=== PATIENT | male | born 1985 | race Caucasian/White ===

== ENCOUNTER 2016-10-18 14:46 | Emergency (ER) | payer OTHER ==
[2016-10-18 15:45] VITALS: BP 125/68
--- NOTE | 2016-10-18 15:56 | UC ---
Shoulder Pain HPI - HPI Summary HPI Summary: waxing and waning right shoulder pain after pushing up on some lumber on his work truck . the lumber has stuck and he stress his right shoulder - History of Current Complaint Chief Complaint: UCUpperExtremity Stated Complaint: WC RIGHT SHOULDER INJURY Time Seen by Provider: 10/18/16 15:48 Hx Obtained From: Patient Onset/Duration: Sudden Onset, Lasting Weeks, Still Present Timing: Intermittent Episode Lasting Severity Initially: Moderate Severity Currently: Mild Location Of Pain: Is Discrete @ - anterior right shoulder Pain Intensity: 3 Pain Scale Used: 0-10 Numeric Character: Aching, Stiffness Aggravating Factor(s): Movement Alleviating Factor(s): Rest, Ice, OTC Meds Associated Signs And Symptoms: Positive: Negative Related History: Occupational Injury, Dominant Hand Right - Allergies/Home Medications Allergies/Adverse Reactions: Allergies Allergy/AdvReac Type Severity Reaction Status Date / Time No Known Allergies Allergy Verified 10/18/16 15:45 Home Medications: Home Medications NK [No Home Medications Reported] 10/18/16 [History Confirmed 10/18/16] PMH/Surg Hx/FS Hx/Imm Hx Previously Healthy: Yes - Surgical History Surgical History: Yes Surgery Procedure, Year, and Place: wisdom teeth - Family History Family History: no reported cardiovascular issues in family lineage - Social History Occupation: Employed Full-time Lives: With Family Alcohol Use: Occasionally Substance Use Type: None Smoking Status (MU): Never Smoked Tobacco - Immunization History Most Recent Tetanus Shot: unknown Review of Systems Constitutional: Negative Skin: Negative Eyes: Negative ENT: Negative Respiratory: Negative Cardiovascular: Negative Gastrointestinal: Negative Genitourinary: Negative Motor: Other - pain in anterior shoulder---worsens with certian movements Neurovascular: Negative Musculoskeletal: Arthralgia - right shoulder Neurological: Negative Psychological: Negative All Other Systems Reviewed And Are Negative: Yes Physical Exam Triage Information Reviewed: Yes Appearance: Well-Appearing, No Pain Distress, Well-Nourished Vital Signs: Initial Vital Signs Temp 99.2 F 10/18/16 15:41 Pulse 77 10/18/16 15:41 Resp 16 10/18/16 15:41 BP 125/68 10/18/16 15:41 Pulse Ox 100 10/18/16 15:41 Vital Signs Reviewed: Yes Eye Exam: Normal Eyes: Positive: Conjunctiva Clear ENT Exam: Normal ENT: Positive: Normal ENT inspection, Hearing grossly normal. Negative: Nasal congestion, Nasal drainage, Trismus, Muffled/hoarse voice Neck exam: Normal Neck: Positive: Supple, Nontender, No Lymphadenopathy Respiratory Exam: Normal Respiratory: Positive: Chest non-tender, Lungs clear, Normal breath sounds, No respiratory distress, No accessory muscle use Cardiovascular Exam: Normal Cardiovascular: Positive: RRR, Pulses Normal, Brisk Capillary Refill Musculoskeletal Exam: Other Musculoskeletal: Positive: Strength Intact, ROM Intact, No Edema, Other: - pain anterior shoulder with movement and palpation Neurological Exam: Normal Neurological: Positive: Alert, Muscle Tone Normal Psychological Exam: Normal Skin Exam: Normal Diagnostics - Radiology No standard instances Xray Interpretation: No Acute Changes Radiology Interpretation Completed By: Radiologist Shoulder Course/Dx - Course Assessment/Plan: ibuprofen, limited activies to pain tolerance, follow with orthopedic MD - Differential Dx/Diagnosis Differential Diagnosis/HQI/PQRI: AC Separation, Contusion, Rotator Cuff Injury, Sprain, Strain Provider Diagnoses: Right shoulder strain Discharge - Discharge Plan Condition: Stable Disposition: HOME Patient Education Materials: Ibuprofen (By mouth), Shoulder Pain (ED) Referrals: Colton Michelle MD [Medical Doctor] - 3 Days Tim Mcrae MD [Medical Doctor] -
--- NOTE | 2016-10-18 16:33 | RAD ---
Indication: Anterior superior RIGHT shoulder pain following injury October 09, 2016. Pushing injury; felt pop. Limited and painful range of motion. Comparison: None. Technique: Internal and external rotation AP and scapular Y views RIGHT shoulder Report: Normal acromioclavicular and glenohumeral joint alignment. Negative for fracture. Unremarkable soft tissue contours. IMPRESSION: Negative radiographic exam of the RIGHT shoulder.
== END 2016-10-18 17:05 | disposition home or self-care (01) ==
LOC: UCCORT 14:46
DX: S46.911A Strain of unspecified muscle, fascia and tendon at shoulder and upper arm level, right arm, initial encounter (principal); X50.0XXA Overexertion from strenuous movement or load, initial encounter; Y93.89 Activity, other specified; Y92.9 Unspecified place or not applicable; Y99.0 Civilian activity done for income or pay
CPT/HCPCS: 99201; G0463

== ENCOUNTER 2018-09-01 11:45 | Emergency (ER) | payer BC, OTHER ==
[2018-09-01 12:39] VITALS: BP 123/65
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
== END 2018-09-01 12:55 | disposition home or self-care (01) ==
LOC: UCCORT 11:45
DX: S00.412A Abrasion of left ear, initial encounter (principal); Y08.89XA Assault by other specified means, initial encounter; Y92.9 Unspecified place or not applicable
CPT/HCPCS: 99211; G0463